=== PATIENT | female | born 1975 | race Caucasian/White ===

== ENCOUNTER → 2018-02-06 | Outpatient (CLI) | payer BC ==
[~2018-02-06] MED LIST: IOHEXOL 350 MG/ML 100ML IJ ONE
[2018-02-06 15:05] VITALS: BP 102/68
== END | disposition home or self-care (01) ==
LOC: Rad HDHVI 13:50
PROVIDERS: ATTEND Internal Medicine Cardiovascular Disease
DX: I47.1 Supraventricular tachycardia (principal); R07.89 Other chest pain; R06.02 Shortness of breath
CPT/HCPCS: 93306; G0463; Q9967